=== PATIENT | female | born 2000 | race Hispanic/Latino ===

== ENCOUNTER 2021-05-15 17:20 | Day surgery (SDC) | payer SELFPAY ==
[2021-05-15 17:51] VITALS: BMI 29.2
[2021-05-15] MEDS ORDERED: hydrALAZINE 20 MG/ML VIAL SLOW IVP PRN (18:09)
[2021-05-15 18:27] LABS: Fetal Membranes Rupture No Membranes Rupture (No Rupture)
== END 2021-05-15 19:35 | disposition home or self-care (01) ==
LOC: CSHLD/OP 17:20
PROVIDERS: ATTEND Advanced Practice Midwife
DX: O47.1 False labor at or after 37 completed weeks of gestation (principal); O99.891 Other specified diseases and conditions complicating pregnancy; N89.8 Other specified noninflammatory disorders of vagina; Z3A.39 39 weeks gestation of pregnancy
CPT/HCPCS: 84112; 87480; 87510; 87660

== ENCOUNTER 2021-05-24 15:35 | Outpatient (CLI) | payer SELFPAY ==
[2021-05-25 19:32] LABS: SARS-CoV-2 PCR by NAA Not Detected (NotDetected)
== END 2021-05-24 15:36 | disposition home or self-care (01) ==
LOC: CSHLAB 15:35
PROVIDERS: ATTEND Advanced Practice Midwife
DX: Z20.822 Contact with and (suspected) exposure to COVID-19 (principal)
CPT/HCPCS: U0003; U0005

== ENCOUNTER 2021-05-27 07:56 | Inpatient (IN) | payer SELFPAY ==
[2021-05-27] MEDS ORDERED: Ibuprofen 800 MG TAB PO PRN (09:07)
[2021-05-27] MEDS ORDERED: hydrALAZINE 20 MG/ML VIAL SLOW IVP PRN ×2 (09:07→10:37)
[2021-05-27] MEDS ORDERED: Lidocaine 1% (PF) 30 ML VIAL SC PRN (09:07)
[2021-05-27] MEDS ORDERED: HYDROcodone/Acetaminophen 5/325 mg Tablet PO PRN ×4 (09:07→10:37)
[2021-05-27] MEDS ORDERED: Misoprostol 200 MCG TAB PR PRN (09:07)
[2021-05-27] MEDS ORDERED: Ondansetron PF 4 MG/2 ML Vial IVP PRN ×4 (09:07→15:38)
[2021-05-27] MEDS ORDERED: Butorphanol Tartrate 1 MG/ML VIAL SLOW IVP PRN (09:07)
[2021-05-27] MEDS ORDERED: Diphenoxylate HCl/Atropine Tablet PO PRN ×2 (09:07)
[2021-05-27] MEDS ORDERED: Carboprost 250 MCG/ML AMP IM PRN (09:07)
[2021-05-27] MEDS ORDERED: Promethazine HCl 25 MG/ML VIAL IM PRN ×3 (09:07→15:38)
[2021-05-27] MEDS ORDERED: Methylergonovine 0.2 MG/ML VIAL IM PRN ×2 (09:07→10:37)
[2021-05-27] MEDS ORDERED: NS w/ Oxytocin 30 units 500 ML IV SCH ×3 (09:15→10:37)
[2021-05-27] MEDS ORDERED: Lactated Ringer's 1,000 ML IV SCH (09:15)
[2021-05-27] MEDS ORDERED: Fentanyl 2 mcg/Bup 0.1% Cadd 100 ML ONE ×2 (09:25→15:41)
[2021-05-27 09:35] LABS: Hemoglobin 12.2 g/dL (12.0-15.5); Mean Corpuscular Hemoglobin 28.8 pg (27.0-33.0); Mean Corpuscular Volume 89.9 fl (81.6-98.3); Mean Platelet Volume 9.9 fl (7.4-10.4); Platelet Count 218 10x3/uL (150-450); RBC Distribution Width 13.6 % (11.5-14.5); Red Blood Cell (RBC) Count 4.24 10x6/uL (3.90-5.03); White Blood Cell (WBC) Count 8.6 10x3/uL (3.5-10.5)
[2021-05-27] MEDS ORDERED: ePHEDrine Sulfate 50 MG/10 ML VIAL SLOW IVP PRN ×2 (09:40→15:38)
[2021-05-27] MEDS ORDERED: diphenhydrAMINE 50 MG/ML VIAL IVP PRN ×2 (09:40→15:38)
[2021-05-27] MEDS ORDERED: Hydrocerin (Eucerin) Cream 120 gm Jar TOP PRN ×2 (09:40→15:38)
[2021-05-27] MEDS ORDERED: Acetaminophen 325 MG TAB PO PRN ×2 (09:40→15:38)
[2021-05-27] MEDS ORDERED: Naloxone HCl 0.4 mg/ml Vial IVP PRN ×4 (09:40→15:38)
[2021-05-27] MEDS ORDERED: Communication Order-Pharmacy FS SCH ×2 (09:45→15:45)
[2021-05-27] MEDS ORDERED: Fentanyl 2 mcg/Bupivacaine 0.1% Cassette 100 ML EPIDURAL SCH ×2 (09:45→15:45)
[2021-05-27 10:08] LABS: Syphilis Antibody Nonreactive (Nonreactive); Syphilis Antibody Index 0.04 S/CO (<1.00 Non-Reactive)
[2021-05-27 10:09] LABS: Hep B Surf Ag Non-Reactive S/CO (NonReactive)
[2021-05-27 10:12] LABS: HBSAg Index 0.17 S/CO (0-0.99)
[2021-05-27] MEDS ORDERED: Lactated Ringer's 1,000 ML IV PRN (10:33)
[2021-05-27] MEDS ORDERED: Bisacodyl 10 MG SUPP PR PRN (10:37)
[2021-05-27] MEDS ORDERED: Benzocaine-Menthol 82.5 ML CAN TOP PRN (10:37)
[2021-05-27] MEDS ORDERED: Boostrix 0.5 ML (Tdap) VIAL IM ONE (10:37)
[2021-05-27] MEDS ORDERED: Milk Of Magnesia 30 ML UDCUP PO PRN (10:37)
[2021-05-27] MEDS ORDERED: Misoprostol 200 MCG TAB VAG PRN (10:37)
[2021-05-27] MEDS ORDERED: Ibuprofen 800 MG TAB PO SCH (14:00)
[2021-05-27] MEDS ORDERED: Bupivacaine 0.25% HCL 30 ML VIAL ONE (15:20)
[2021-05-27] MEDS ORDERED: Lactated Ringer's 500 ML IV PRN (15:38)
[2021-05-27] MEDS ORDERED: Ferrous Sulfate 325 MG TAB PO SCH (17:00)
[2021-05-27 20:40] LABS: pH (Cord, venous) 7.187 (7.250-7.350)
[2021-05-27] MEDS ORDERED: Docusate 100 MG CAP PO SCH (21:00)
[2021-05-28] MEDS ORDERED: Lanolin Ointment 7 GM TUBE TOP PRN (00:43)
[2021-05-28] MEDS ORDERED: Ondansetron PF 4 MG/2 ML Vial IVP PRN (00:43)
[2021-05-28] MEDS ORDERED: HYDROcodone/Acetaminophen 5/325 mg Tablet PO PRN (00:43)
[2021-05-28] MEDS ORDERED: hydrALAZINE 20 MG/ML VIAL SLOW IVP PRN (00:43)
[2021-05-28] MEDS ORDERED: Benzocaine-Menthol 82.5 ML CAN TOP PRN (00:43)
[2021-05-28] MEDS ORDERED: Misoprostol 200 MCG TAB VAG PRN (00:43)
[2021-05-28] MEDS ORDERED: Bisacodyl 10 MG SUPP PR PRN (00:43)
[2021-05-28] MEDS ORDERED: Milk Of Magnesia 30 ML UDCUP PO PRN (00:43)
[2021-05-28] MEDS ORDERED: NS w/ Oxytocin 30 units 500 ML IV SCH (00:43)
[2021-05-28] MEDS: Ferrous Sulfate 325 MG TAB PO SCH ×2 (01:02→07:59)
[2021-05-28] MEDS: Docusate 100 MG CAP PO SCH ×3 (01:02→20:42)
[2021-05-28] MEDS: Ibuprofen 800 MG TAB PO SCH ×4 (01:02→22:27)
[2021-05-28] MEDS: HYDROcodone/Acetaminophen 5/325 mg Tablet PO PRN (07:57)
[2021-05-28] MEDS: Prenatal Vitamin 1 TAB PO SCH (07:58)
[2021-05-29] MEDS ORDERED: Lactated Ringer's 1,000 ML IV SCH (01:45)
[2021-05-29 02:18] LABS: #Monocytes 0.6 10x3/uL (0.0-1.1); #Neutrophils 7.5 10x3/uL (1.5-8.4); %Basophils 0.1 % (0.0-2.0); %Eosinophils 0.1 % (0.0-6.0); %Lymphocytes 8.9 % (18.0-47.0); %Monocytes 6.1 % (0.0-10.0); %Neutrophils 83.9 % (40.0-75.0); Mean Corpuscular HGB CONC 33.6 g/dL (32.0-36.0); Mean Corpuscular Volume 89.3 fl (81.6-98.3); Mean Platelet Volume 9.3 fl (7.4-10.4); Platelet Count 119 10x3/uL (150-450); RBC Distribution Width 14.4 % (11.5-14.5)
[2021-05-29 02:24] LABS: Lactic Acid 0.9 mmol/L (0.5-2.2)
[2021-05-29 02:29] LABS: ALT (SGPT) 12 U/L (8-55); AST (SGOT) 20 U/L (5-34); Albumin 2.6 g/dL (3.5-5.0); Alkaline Phosphatase 131 U/L (40-100); Anion Gap 9 mmol/L (10-20); BUN (Urea Nitrogen) 13 mg/dL (7.0-18.7); Bilirubin, Total 0.3 mg/dL (0.2-1.2); Calc. Creatinine Clearance 161 mL/min (70-130); Calcium 8.2 mg/dL (7.8-10.44); Carbon Dioxide 22 mmol/L (22-29); Chloride 108 mmol/L (98-107); Globulin 2.6 g/dL (2.4-3.5); Glucose 102 mg/dL (70-105); Potassium 3.3 mmol/L (3.5-5.1); Protein, Total 5.2 g/dL (6.0-8.3); Sodium 136 mmol/L (136-145)
[2021-05-29 03:25] LABS: Bilirubin Neg (Negative); Blood, Urine 50 (Negative); Glucose, Urine (Dipstick) Normal (Negative); Ketone, Urine Negative (Negative); Leukocyte 100 (Negative); Nitrite Negative (Negative); Protein, Urine (Dipstick) 15 mg/dl (Neg-Trace); Urobilinogen Normal mg/dL (Less than 2)
[2021-05-29 03:26] LABS: Clarity Clear (Clear)
[2021-05-29 03:27] LABS: Urine Culture Reflex No No
[2021-05-29 03:40] LABS: Bacteria/HPF 3+ HPF (None Seen); RBC/HPF 0-3 HPF (0-3); Squamous Epithelial 0-3 HPF (0-3)
[2021-05-29] MEDS: Ibuprofen 800 MG TAB PO SCH ×3 (05:33→21:58)
[2021-05-29] MEDS: Clindamycin/D5W 900 MG in Premix Bag 1 BAG IVPB SCH ×3 (06:08→22:14)
[2021-05-29] MEDS: Prenatal Vitamin 1 TAB PO SCH (08:40)
[2021-05-29] MEDS: Docusate 100 MG CAP PO SCH ×2 (08:40→21:58)
[2021-05-29] MEDS: Ferrous Sulfate 325 MG TAB PO SCH ×2 (08:52→17:38)
[2021-05-29] MEDS: Ampicillin 2 GM in Sodium Chloride 0.9% 100 ML IVPB SCH ×3 (10:19→21:27)
[2021-05-29] MEDS ORDERED: AMPicillin 2 GM in Sodium Chloride 0.9% 100 ML IVPB SCH (12:00)
[2021-05-29] MEDS: HYDROcodone/Acetaminophen 5/325 mg Tablet PO PRN (14:19)
[2021-05-29] MEDS: Lactated Ringer's 1,000 ML IV SCH (18:49)
[2021-05-30] MEDS: Ampicillin 2 GM in Sodium Chloride 0.9% 100 ML IVPB SCH ×4 (03:06→20:52)
[2021-05-30] MEDS: Clindamycin/D5W 900 MG in Premix Bag 1 BAG IVPB SCH ×3 (05:43→22:12)
[2021-05-30] MEDS: Ibuprofen 800 MG TAB PO SCH ×3 (05:44→20:51)
[2021-05-30] MEDS: Prenatal Vitamin 1 TAB PO SCH (08:59)
[2021-05-30] MEDS: Docusate 100 MG CAP PO SCH ×2 (08:59→20:52)
[2021-05-30] MEDS: Ferrous Sulfate 325 MG TAB PO SCH ×2 (08:59→18:10)
[2021-05-30] MEDS: Lactated Ringer's 1,000 ML IV SCH ×3 (09:30→20:52)
[2021-05-31] MEDS: Ampicillin 2 GM in Sodium Chloride 0.9% 100 ML IVPB SCH ×3 (03:45→14:35)
[2021-05-31] MEDS: Clindamycin/D5W 900 MG in Premix Bag 1 BAG IVPB SCH ×2 (05:47→13:52)
[2021-05-31] MEDS: Ibuprofen 800 MG TAB PO SCH ×2 (05:47→14:35)
[2021-05-31] MEDS: Lactated Ringer's 1,000 ML IV SCH ×2 (06:26→12:20)
[2021-05-31] MEDS: Prenatal Vitamin 1 TAB PO SCH (08:37)
[2021-05-31] MEDS: Docusate 100 MG CAP PO SCH (08:37)
[2021-05-31] MEDS: Ferrous Sulfate 325 MG TAB PO SCH (08:37)
[2021-05-31 11:49] VITALS: TEMP 98.2
[2021-05-31 15:26] VITALS: BP 113/82
== END 2021-05-31 17:20 | disposition home or self-care (01) | DRG 806 ==
LOC: CSHLD/OP 07:56 → CSHLD 08:49 → CSHPP 05-28 00:10
PROVIDERS: ADMIT Obstetrics & Gynecology; ATTEND Obstetrics & Gynecology
PROC: 10E0XZZ Delivery of Products of Conception, External Approach (ICD-10-PCS; principal; 2021-05-30)
DX: O77.0 Labor and delivery complicated by meconium in amniotic fluid (principal); Z37.0 Single live birth; Z3A.40 40 weeks gestation of pregnancy; O86.21 Infection of kidney following delivery; N12 Tubulo-interstitial nephritis, not specified as acute or chronic; B96.20 Unspecified Escherichia coli [E. coli] as the cause of diseases classified elsewhere; O69.81X0 Labor and delivery complicated by cord around neck, without compression, not applicable or unspecified
CPT/HCPCS: 36415; 51702; 76705; 80053; 81001; 82805; 83605; 85025; 85027; 86780; 86850; 86900; 86901; 87040; 87077; 87086; 87186; 87340; 99285; J0290; J1580; J2405; J3490; J7120; S0020